=== PATIENT | female | born 1950 | race Caucasian/White ===

== ENCOUNTER → 2020-11-20 08:23 | Outpatient (BNVA) | payer OTHER, SELFPAY | PROVIDERS: Visit Provider Anesthesiology ==

== ENCOUNTER → 2021-02-18 15:08 | Outpatient (BNVA) | payer MEDICARE, SELFPAY | PROVIDERS: PCP Internal Medicine; Visit Provider Anesthesiology | DX: M96.1 Postlaminectomy syndrome, not elsewhere classified (principal); M16.12 Unilateral primary osteoarthritis, left hip; M51.36 Other intervertebral disc degeneration, lumbar region; M47.816 Spondylosis without myelopathy or radiculopathy, lumbar region; M81.0 Age-related osteoporosis without current pathological fracture; M84.48XD Pathological fracture, other site, subsequent encounter for fracture with routine healing; Z79.891 Long term (current) use of opiate analgesic | CPT/HCPCS: Q3014 ==

== ENCOUNTER 2021-02-26 10:46 | Day surgery (SDC) | payer MEDICARE, SELFPAY ==
--- NOTE | 2021-02-25 10:06 | HO.ANESPROP2 ---
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 (Acute) Osteoporosis (Acute) Osteopenia (Acute) Postlaminectomy syndrome (Acute) Disc degeneration, lumbar (Acute) Spondylosis of lumbar spine (Acute) Fracture of other parts of pelvis, sequela (Acute) Sacral insufficiency fracture with routine healing (Acute) Osteoarthritis of left hip (Acute) Past Medical History Medical History (Updated 02/26/21 @ 10:59 by Lisa Gonsalves RN) Amputation toe Bilateral cataracts Disc degeneration, lumbar Fracture of other parts of pelvis, sequela History of open sigmoidectomy snf (current) use of opiate analgesic Osteoarthritis of left hip Osteopenia Osteoporosis Postlaminectomy syndrome Sacral insufficiency fracture with routine healing Spondylosis of lumbar spine Surgical History Surgical History (Updated 02/26/21 @ 11:00 by Lisa Gonsalves RN) History of laparotomy History of liver biopsy Hx of tonsillectomy Social History Social History Patient Tobacco Use Status: Current someday Tobacco user Tobacco use type: Cigar Cigarettes Per Day: 10 Smoked in Last 30 Days: Yes Use of substances other than those prescribed or required for medical reasons: No Are you DNR?: No Advance Directives: No Advance Directives Information Provided: Yes Recently lost weight without trying: No Nutrition Risks: No Nutritional Risk Meds Allergies Allergy/AdvReac Type Severity Reaction Status Date / Time sulfamethoxazole Allergy Rash Verified 02/26/21 11:06 [From Bactrim] trimethoprim [From Bactrim] Allergy Rash Verified 02/26/21 11:06 Home Medications Medication Instructions Recorded Confirmed Last Taken Type acetaminophen 500 mg capsule 500 mg PO QID PRN 11/20/20 11/20/20 Unknown History calcium carbonate 500 mg calcium 500 mg PO DAILY 11/20/20 11/20/20 Unknown History (1,250 mg) tablet (Calcium 500) cholecalciferol (vitamin D3) 25 25 mcg PO DAILY 11/20/20 11/20/20 Unknown History mcg (1,000 unit) capsule fluticasone propionate 50 2 spray INTRANASAL DAILY PRN 11/20/20 11/20/20 Unknown History mcg/actuation nasal spray,suspension lisinopril 10 1 tab PO DAILY 11/20/20 11/20/20 Unknown History mg-hydrochlorothiazide 12.5 mg tablet lorazepam 0.5 mg tablet 0.5 mg PO BEDTIME PRN 11/20/20 11/20/20 Unknown History omeprazole 40 mg capsule,delayed 40 mg PO BID 11/20/20 11/20/20 02/26/21 History release oxycodone 5 mg tablet 5 mg PO Q8H PRN 11/20/20 11/20/20 02/26/21 09:30 History ursodiol 500 mg tablet 500 mg PO BID 11/20/20 11/20/20 Unknown History Exam Exam Date and Time: February 25, 2021 100 Assessment and Plan Assessment Anesthesia Assessment: Chart Reviewed Documented by User: Sixto Molina MD 02/26/21 12:22 [facility] Past Medical History Medical History (Updated 02/26/21 @ 10:59 by Lisa Gonsalves RN) Amputation toe Bilateral cataracts Disc degeneration, lumbar Fracture of other parts of pelvis, sequela History of open sigmoidectomy 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 Osteoarthritis of left hip Osteopenia Osteoporosis Postlaminectomy syndrome Sacral insufficiency fracture with routine healing Spondylosis of lumbar spine Family History Family history of problems with anesthesia: No Surgical History Surgical History (Updated 02/26/21 @ 11:00 by Lisa Gonsalves RN) History of laparotomy History of liver biopsy Hx of tonsillectomy History of Problems with Anesthesia: No Social History Social History Patient Tobacco Use Status: Current someday Tobacco user Tobacco use type: Cigar Cigarettes Per Day: 10 Smoked in Last 30 Days: Yes Use of substances other than those prescribed or required for medical reasons: No Are you DNR?: No Advance Directives: No Advance Directives Information Provided: Yes Recently lost weight without trying: No Nutrition Risks: No Nutritional Risk Meds Allergies Allergy/AdvReac Type Severity Reaction Status Date / Time sulfamethoxazole Allergy Rash Verified 02/26/21 11:06 [From Bactrim] trimethoprim [From Bactrim] Allergy Rash Verified 02/26/21 11:06 Home Medications Medication Instructions Recorded Confirmed Last Taken Type acetaminophen 500 mg capsule 500 mg PO QID PRN 11/20/20 11/20/20 Unknown History calcium carbonate 500 mg calcium 500 mg PO DAILY 11/20/20 11/20/20 Unknown History (1,250 mg) tablet (Calcium 500) cholecalciferol (vitamin D3) 25 25 mcg PO DAILY 11/20/20 11/20/20 Unknown History mcg (1,000 unit) capsule fluticasone propionate 50 2 spray INTRANASAL DAILY PRN 11/20/20 11/20/20 Unknown History mcg/actuation nasal spray,suspension lisinopril 10 1 tab PO DAILY 11/20/20 11/20/20 Unknown History mg-hydrochlorothiazide 12.5 mg tablet lorazepam 0.5 mg tablet 0.5 mg PO BEDTIME PRN 11/20/20 11/20/20 Unknown History omeprazole 40 mg capsule,delayed 40 mg PO BID 11/20/20 11/20/20 02/26/21 History release oxycodone 5 mg tablet 5 mg PO Q8H PRN 11/20/20 11/20/20 02/26/21 09:30 History ursodiol 500 mg tablet 500 mg PO BID 11/20/20 11/20/20 Unknown History Exam Airway Denture: Upper and Lower Assessment and Plan Assessment Anesthesia Assessment: Anesthesia Plan Discussed Final Anesthetic Review Family History of Problems with Anesthesia: No History of Problems with Anesthesia: No NPO: Yes ASA Class: III Final Preanesthetic Review: No Changes in Pt Med Stat, Meds/Allgs Chart Reviewed, Consent Obtained/Reviewed and Anes Risks/Benef Reviewed Patient Risk: Intermediate Procedure Risk: Low Anesthetic Plan Anesthetic Plan: MAC: Disposition: Standard PACU
--- NOTE | ~2021-02-26 | FL_ITS ---
EXAMINATION: XR FLUOROSCOPY WITH IMAGES CLINICAL INFORMATION: Lumbar spine port stimulator trial. COMPARISON: None. TECHNIQUE: Fluoroscopy performed by Dr. Beau White. Fluoroscopy time: 2 minutes DAP: 9 mGy-cm2 Images: 2 FINDINGS: Images demonstrate leads projecting over the lower thoracic spinal canal. FL/FL guidance in OR IMPRESSION: Fluoroscopic guidance for spinal stimulator trial.
[2021-02-26 11:01] VITALS: BMI 24.9
[2021-02-26 11:30] VITALS: BP 131/60; PULSE 69; RESP 16; TEMP 36.9; O2SAT 96
[2021-02-26] MEDS: Lactated Ringers 1,000 ML 100 ML IVCONT (11:49)
[2021-02-26 12:20] LABS: Prothrombin Time 11.2 SEC (9.9-13.0)
--- NOTE | 2021-02-26 12:37 | MHC.SHP ---
Pre-Procedural Eval Section A Date of Service: 02/26/21 Changes since office visit: Yes Patient answered all questions The History & Physical has been completed within 30 days and I have reviewed it.: No Section B Chief Complaint: spondylosis of lumbar spine Relevant Family History (Specify if Yes): No Relevant Social History: None Present Medications: see Short Stay Collaborative assessment Medical History: No relevant PMH History of Previous Operations: No relevant previous surgery Allergies: Allergies Allergy/AdvReac Type Severity Reaction Status Date / Time sulfamethoxazole Allergy Rash Verified 02/26/21 11:06 [From Bactrim] trimethoprim [From Bactrim] Allergy Rash Verified 02/26/21 11:06 Review of Systems Sugical H&P ROS: Negative: Constitution, Cardiovascular, Respiratory, Neurological, Psychiatric, Hem-Onc, Allergic/Immunologic, Gastrointestinal, Genitourinary, Musculoskeletal, Integumentary, Endocrine and Eyes/Ears/Nose/Throat Exam Surgical H&P Exam: Normal: HEENT, Normal: Heart, Normal: Lungs, Normal: Extremities, Normal: Abdomen, Normal: Skin and Normal: Neurological Plan Diagnosis/Plan: Unchanged I have reviewed the history and physical and performed a pertinent physical examination on my patient. No changes have occurred unless specified.
[2021-02-26 13:59] VITALS: BP 137/59; PULSE 59; RESP 16; TEMP 36.3; O2SAT 98
[2021-02-26 14:04] VITALS: BP 118/55; PULSE 61; RESP 16; O2SAT 99
[2021-02-26 14:09] VITALS: BP 146/93; PULSE 59; RESP 16; O2SAT 100
[2021-02-26 14:12] VITALS: BP 152/87
[2021-02-26 14:13] VITALS: BP 152/57; PULSE 62; RESP 16; TEMP 36.3; O2SAT 100
--- NOTE | 2021-02-26 14:14 | P.BOP_ITS ---
Brief Operative Note Date of Service: 02/26/21 Pre-op diagnosis: Spondylosis lumbar spine, postlaminectomy syndrome. Post-op diagnosis: same Procedure: Trial of spinal cord stimulator Implants: None permanent Surgeon: Beau White MD Anesthesia: MAC Was an Relay Dispatcher used for this Procedure?: No Estimated blood loss (mL): 5 Condition: stable Disposition: PACU
--- NOTE | 2021-02-26 14:16 | P.OP_ITS ---
Operative Note Operative Note Date of Service: 02/26/21 Narrative: Janette is very pleasant 70 years old female who came to the office with complains on lower back pain hips pain and buttocks pain for the trial of [employer] spinal cord stimulator. is very pleasant??70 years old lady who came today into the operating room for trial of spinal cord stimulator for the treatment of post laminectomy syndrome and chronic pain syndrome. Preoperatively patient received 2 g of cefazolin approximately 15 minutes before procedure. After obtaining informed consent patient was brought to the operating room, SHE was positioned prone on operating table, [employer] monitors were applied and patient was deeply sedated.? The patient was taken inside of the operating room where she was positioned prone on operating table.? Time-out was performed delineating correct site, side, the nature of the procedure, patient's allergy, preoperative antibiotic if needed.? All operating room staff was participating in OR time-out procedure. Patient's entire back was prepped with ChloraPrep twice and draped with full body fenestrated drape.? Sterilely draped C-arm was brought over operating field and sqare picture of T11-T12 L1 L2 vertebrae as were demonstrated on the screen.? Attention FIRST? was concentrated on the T12-L1 epidural interspace.? The location of the projection of the right pedicle center of the L2 vertebra was found on the skin using C-arm.? This location was injected with mixture of lidocaine 2% and Marcaine 0.5% 5 cc.? After that 11 blade was used to make a jose eduardo on the skin.? 10 cm 14 gauge introducer epidural needle was inserted through the jose eduardo and advanced to T12-L1 epidural interspace.? The advancement of the needle was performed on anterior posterior and lateral views.? Guitar wire and loss of resistance technique were used to locate epidural space.? When guitar wire was spread in the epidural fashion, epidural lead was inserted through the skin and it was advanced to T8 position SLIGHTLY RIGHT OF THE MIDL INE.? After that location of the projection of the LEFT pedicle center of the L2 vertebra was found on the skin using C-arm.? This location was injected with mixture of lidocaine 2% and Marcaine 0.5% 5 cc.? After that 11 blade was used to make a jose eduardo on the skin.? 10 cm 14 gauge introducer epidural needle was inserted through the jose eduardo and advanced to T12-L1 epidural interspace.? The advancement of the needle was performed on anterior posterior and lateral views.? Loss of resistance technique was used to locate epidural space.? When guitar wire was spread in the epidural fashion, epidural lead was inserted through the needle and advanced to the T8 posterior epidural space practically at the midline. At this moment patient was awaken and the epidural leads were connected to the testing device.? The patient reported stimulation corresponding to her pain.? After satisfactory position of the leads were established the needles were withdrawn, the stylette wires were removed from the epidural leads.? The anchoring devices were dislodged on the leads and advanced to the level of the skin.? The anchoring devices were sutured with two 0-0 silk sutures to the skin of the patient.? The leads were connected to testing device.? Bacitracin ointment was applied to the entrance point of bilateral needles.? Sterile dressing was applied to the patient's back.? The testing device was also glued to the patient's back.? Upon completion of the procedure the patient was taken to PACU where SHE recovered uneventfully.
== END 2021-02-26 15:12 | disposition home or self-care (01) ==
PROVIDERS: PCP Internal Medicine; Visit Provider Anesthesiology
PROC: (CPT 63650; principal; 2021-02-26 12:30)
DX: M84.48XD Pathological fracture, other site, subsequent encounter for fracture with routine healing (principal); M16.12 Unilateral primary osteoarthritis, left hip; M47.816 Spondylosis without myelopathy or radiculopathy, lumbar region; M51.36 Other intervertebral disc degeneration, lumbar region; M96.1 Postlaminectomy syndrome, not elsewhere classified; G89.4 Chronic pain syndrome; M81.0 Age-related osteoporosis without current pathological fracture; M25.552 Pain in left hip; M85.80 Other specified disorders of bone density and structure, unspecified site; M79.10 Myalgia, unspecified site; Z79.891 Long term (current) use of opiate analgesic; Z88.2 Allergy status to sulfonamides; Z90.49 Acquired absence of other specified parts of digestive tract; F17.290 Nicotine dependence, other tobacco product, uncomplicated
CPT/HCPCS: 63650 ×2; 36415; 85610; C1778; J0690; J3010

== ENCOUNTER → 2021-03-03 10:21 | Outpatient (BNVA) | payer MEDICARE, SELFPAY | PROVIDERS: PCP Internal Medicine; Visit Provider Anesthesiology | DX: M16.12 Unilateral primary osteoarthritis, left hip (principal); M84.48XD Pathological fracture, other site, subsequent encounter for fracture with routine healing; M47.816 Spondylosis without myelopathy or radiculopathy, lumbar region; M51.36 Other intervertebral disc degeneration, lumbar region; M96.1 Postlaminectomy syndrome, not elsewhere classified; M85.80 Other specified disorders of bone density and structure, unspecified site; M81.0 Age-related osteoporosis without current pathological fracture; S32.89XS Fracture of other parts of pelvis, sequela; Z79.891 Long term (current) use of opiate analgesic | CPT/HCPCS: 99212 ==

== ENCOUNTER → 2021-03-12 08:56 | Outpatient (BNVA) | payer MEDICARE, SELFPAY | PROVIDERS: PCP Internal Medicine; Visit Provider Anesthesiology | DX: M16.12 Unilateral primary osteoarthritis, left hip (principal); M84.48XD Pathological fracture, other site, subsequent encounter for fracture with routine healing; S32.89XD Fracture of other parts of pelvis, subsequent encounter for fracture with routine healing; M47.816 Spondylosis without myelopathy or radiculopathy, lumbar region; M51.36 Other intervertebral disc degeneration, lumbar region; M96.1 Postlaminectomy syndrome, not elsewhere classified; M85.80 Other specified disorders of bone density and structure, unspecified site; M81.0 Age-related osteoporosis without current pathological fracture; Z79.891 Long term (current) use of opiate analgesic | CPT/HCPCS: 99212 ==

== ENCOUNTER → 2021-03-26 09:06 | Outpatient (BNVA) | payer MEDICARE, SELFPAY | PROVIDERS: PCP Internal Medicine; Visit Provider Anesthesiology | DX: M16.12 Unilateral primary osteoarthritis, left hip (principal); M84.48XD Pathological fracture, other site, subsequent encounter for fracture with routine healing; M47.816 Spondylosis without myelopathy or radiculopathy, lumbar region; M51.36 Other intervertebral disc degeneration, lumbar region; M96.1 Postlaminectomy syndrome, not elsewhere classified; M85.80 Other specified disorders of bone density and structure, unspecified site; M81.0 Age-related osteoporosis without current pathological fracture; Z79.891 Long term (current) use of opiate analgesic; S32.89XS Fracture of other parts of pelvis, sequela | CPT/HCPCS: 99212 ==

== ENCOUNTER → 2021-04-15 14:49 | Outpatient (BNVA) | payer MEDICARE, SELFPAY | PROVIDERS: PCP Internal Medicine; Visit Provider Anesthesiology | DX: M16.12 Unilateral primary osteoarthritis, left hip (principal); M84.48XD Pathological fracture, other site, subsequent encounter for fracture with routine healing; M47.816 Spondylosis without myelopathy or radiculopathy, lumbar region; M51.36 Other intervertebral disc degeneration, lumbar region; M96.1 Postlaminectomy syndrome, not elsewhere classified; M85.80 Other specified disorders of bone density and structure, unspecified site; M81.0 Age-related osteoporosis without current pathological fracture; Z79.891 Long term (current) use of opiate analgesic; S32.89XS Fracture of other parts of pelvis, sequela | CPT/HCPCS: 99212 ==

== ENCOUNTER → 2021-05-13 13:58 | Outpatient (BNVA) | payer MEDICARE, SELFPAY | PROVIDERS: PCP Internal Medicine; Visit Provider Anesthesiology | DX: M16.12 Unilateral primary osteoarthritis, left hip (principal); M84.48XD Pathological fracture, other site, subsequent encounter for fracture with routine healing; M51.36 Other intervertebral disc degeneration, lumbar region; M96.1 Postlaminectomy syndrome, not elsewhere classified; M85.80 Other specified disorders of bone density and structure, unspecified site; M81.0 Age-related osteoporosis without current pathological fracture; F17.290 Nicotine dependence, other tobacco product, uncomplicated; Z88.1 Allergy status to other antibiotic agents; Z88.2 Allergy status to sulfonamides; Z79.891 Long term (current) use of opiate analgesic; Z79.899 Other long term (current) drug therapy | CPT/HCPCS: 99212 ==

== ENCOUNTER → 2021-06-11 08:18 | Outpatient (BNVA) | payer MEDICARE, SELFPAY | PROVIDERS: PCP Internal Medicine; Visit Provider Anesthesiology ==

== ENCOUNTER → 2021-07-09 10:09 | Outpatient (BNVA) | payer MEDICARE, SELFPAY | PROVIDERS: PCP Internal Medicine; Visit Provider Anesthesiology | DX: M16.12 Unilateral primary osteoarthritis, left hip (principal); M47.816 Spondylosis without myelopathy or radiculopathy, lumbar region; M51.36 Other intervertebral disc degeneration, lumbar region; M96.1 Postlaminectomy syndrome, not elsewhere classified; M85.80 Other specified disorders of bone density and structure, unspecified site; M81.0 Age-related osteoporosis without current pathological fracture; M84.48XD Pathological fracture, other site, subsequent encounter for fracture with routine healing; S32.89XS Fracture of other parts of pelvis, sequela; Z79.891 Long term (current) use of opiate analgesic | CPT/HCPCS: Q3014 ==

== ENCOUNTER → 2021-07-13 11:13 | Outpatient (BNVA) | payer MEDICARE, SELFPAY | PROVIDERS: PCP Internal Medicine; Visit Provider Anesthesiology | DX: M16.12 Unilateral primary osteoarthritis, left hip (principal); K59.03 Drug induced constipation; T40.2X5A Adverse effect of other opioids, initial encounter; M84.48XD Pathological fracture, other site, subsequent encounter for fracture with routine healing; M47.816 Spondylosis without myelopathy or radiculopathy, lumbar region; M51.36 Other intervertebral disc degeneration, lumbar region; M96.1 Postlaminectomy syndrome, not elsewhere classified; M85.80 Other specified disorders of bone density and structure, unspecified site; M81.0 Age-related osteoporosis without current pathological fracture; G89.4 Chronic pain syndrome; F11.20 Opioid dependence, uncomplicated | CPT/HCPCS: 99212 ==